=== PATIENT | female | born 1970 | race Two or more races ===

== ENCOUNTER 2024-01-01 03:57 | Day surgery (SDC) | payer OTHER ==
[2023-12-28 14:59] VITALS: BMI 27.4
[2024-01-01] MEDS: IOHEXOL 180 MG/1 ML ML IJ ONE
[2024-01-01] MEDS: DEXAMETHASONE SOD PHOSPHATE 10 MG/1 ML VIAL IVPUSH ONE
[2024-01-01] MEDS: LIDOCAINE 1% P/F 10 MG/ML VIAL INF ONE
[2024-01-01] MEDS ORDERED: ACETAMINOPHEN 500 MG TABLET (FP) PO PRN (08:33)
[2024-01-01 10:19] VITALS: RESP 18
[2024-01-01] MEDS: BUPIVACAINE HCL/PF 0.5% (5MG/ML) 10 ML VIAL IJ ONE (10:57)
[2024-01-01 11:32] VITALS: TEMP 98
[2024-01-01 12:10] VITALS: BP 127/80; PULSE 61
== END 2024-01-01 12:15 | disposition home or self-care (01) ==
LOC: JASU-SURG 03:57
PROVIDERS: ATTEND Pain Medicine Pain Medicine
PROC: 3E0T33Z Introduction of Anti-inflammatory into Peripheral Nerves and Plexi, Percutaneous Approach (ICD-10-PCS; 2024-01-01)
PROC: 3E0T3BZ Introduction of Anesthetic Agent into Peripheral Nerves and Plexi, Percutaneous Approach (ICD-10-PCS; principal; 2024-01-01 12:00)
DX: M47.812 Spondylosis without myelopathy or radiculopathy, cervical region (principal)
CPT/HCPCS: 76000-TC-FY; 81025; J1100